=== PATIENT | male | born 1940 | race Caucasian/White ===

== ENCOUNTER 2024-04-21 23:59 | Emergency (ER) | payer MEDICARE ==
[2024-04-22] MEDS ORDERED: traMADol HCl 50 MG TAB ONE (00:50)
[2024-04-22] MEDS ORDERED: Acetaminophen 500 MG TAB ONE (00:50)
== END 2024-04-22 01:15 | disposition home or self-care (01) ==
LOC: NAV ERS 23:59
DX: M75.22 Bicipital tendinitis, left shoulder (principal); I25.10 Atherosclerotic heart disease of native coronary artery without angina pectoris; I48.91 Unspecified atrial fibrillation; I10 Essential (primary) hypertension

== ENCOUNTER 2024-04-22 22:12 | Emergency (ER) | payer MEDICARE ==
[2024-04-22] MEDS ORDERED: Morphine 4 MG/ML VIAL ONE (22:52)
[2024-04-22 22:53] LABS: #Eosinphils 0.2 thou/uL (0.0-0.7); #Monocytes 0.5 thou/uL (0.11-0.59); #Neutrophils 4.6 thou/uL (1.40-6.50); %Basophils 0.5 % (0.0-1.0); %Eosinophils 2.6 % (0.0-10.0); %Lymphocytes 15.6 % (21.0-51.0); %Monocytes 7.9 % (0.0-10.0); %Neutrophils 73.5 % (42.0-75.0); Hematocrit 39.8 % (42.0-52.0); Hemoglobin 12.7 g/dL (14.0-18.0); Mean Corpuscular HGB CONC 31.9 g/dL (32.0-36.0); Mean Corpuscular Hemoglobin 30.4 pg (27.0-31.0); Mean Corpuscular Volume 95.3 fl (78.0-98.0); Mean Platelet Volume 6.1 fL (7.4-10.4); Platelet Count 216 10x3/uL (130-400); RBC Distribution Width 14.3 % (11.5-14.5); Red Blood Cell (RBC) Count 4.18 mill/uL (4.70-6.10); White Blood Cell (WBC) Count 6.3 10x3/uL (4.8-10.8)
[2024-04-22] MEDS ORDERED: Ondansetron PF 4 MG/2 ML Vial ONE (22:53)
[2024-04-22 23:11] LABS: ALT (SGPT) 30 U/L (8-55); AST (SGOT) 31 U/L (5-34); Alkaline Phosphatase 85 U/L (40-110); Anion Gap 16 mmol/L (10-20); BUN (Urea Nitrogen) 32 mg/dL (8.4-25.7); Bilirubin, Total 0.6 mg/dL (0.2-1.2); CK (CPK) 179 U/L (30-200); Calc. Creatinine Clearance 0 mL/min (70-130); Calcium 9.1 mg/dL (7.8-10.44); Carbon Dioxide 24 mmol/L (23-31); Chloride 107 mmol/L (98-107); Estimated GFR 82; Globulin 2.4 g/dL (2.4-3.5); Glucose 141 mg/dL (83-110); Potassium 3.8 mmol/L (3.5-5.1); Protein, Total 6.4 g/dL (5.8-8.1); Sodium 143 mmol/L (136-145)
[2024-04-22 23:14] LABS: Critical Call Chem Troponin I NUR.SB13@2314; Troponin I 0.507 ng/mL (< 0.028)
[2024-04-22] MEDS ORDERED: Aspirin Chewable 81 MG TAB ONE (23:29)
[2024-04-22] MEDS ORDERED: Nitroglycerin 0.4 MG TAB 1 EACH ONE (23:32)
[2024-04-22] MEDS ORDERED: Enoxaparin 100 MG (1 mL) SYRINGE ONE (23:33)
== END 2024-04-23 01:26 | disposition short-term general hospital (02) ==
LOC: NAV ERS 22:12
DX: I24.9 Acute ischemic heart disease, unspecified (principal); I25.10 Atherosclerotic heart disease of native coronary artery without angina pectoris; I10 Essential (primary) hypertension; I48.91 Unspecified atrial fibrillation
CPT/HCPCS: 72040; 80053; 82550; 84484; 85025; 93005; 96372; 96374; 96375; J1650; J2270; J2405